=== PATIENT | male | born 1955 | race Caucasian/White ===

== ENCOUNTER → 2018-07-16 | Outpatient (CLI) | payer OTHER | END | disposition home or self-care (01) | LOC: CFH 08:57 | PROVIDERS: ATTEND Internal Medicine Cardiovascular Disease | DX: I07.1 Rheumatic tricuspid insufficiency (principal); I10 Essential (primary) hypertension; E78.5 Hyperlipidemia, unspecified | CPT/HCPCS: 93306 ==

== ENCOUNTER 2019-02-05 10:03 | Outpatient (CLI) | payer OTHER ==
[2019-02-05] MEDS ORDERED: RIVA20TA PO (10:44)
[2019-02-05] MEDS ORDERED: METO25TA35 PO (10:44)
[2019-02-05] MEDS ORDERED: MOME30SO2 NAS (10:44)
[2019-02-05] MEDS ORDERED: FLEC150T PO (10:44)
[2019-02-05] MEDS ORDERED: MONT10TA9 PO (10:44)
[2019-02-05] MEDS ORDERED: LISI-167 PO (10:44)
[2019-02-05] MEDS ORDERED: ATOR20TA37 PO (10:44)
== END 2019-02-05 23:59 | disposition home or self-care (01) ==
LOC: STAR 10:03
PROVIDERS: ATTEND Internal Medicine Cardiovascular Disease
DX: Z02.9 Encounter for administrative examinations, unspecified (principal)

== ENCOUNTER → 2019-02-05 | Outpatient (CLI) | payer OTHER ==
[~2019-02-05] MED LIST: ATOR20TA37 PO; FLEC150T PO; LISI-167 PO; METO25TA35 PO; MOME30SO2 NAS; MONT10TA9 PO; OMNIPAQUE 350 MG/ML, 150 ML BOTTLE ONE; RIVA20TA PO
== END | disposition home or self-care (01) ==
LOC: CFH 08:49
PROVIDERS: ATTEND Internal Medicine Cardiovascular Disease
DX: I25.10 Atherosclerotic heart disease of native coronary artery without angina pectoris (principal); R91.1 Solitary pulmonary nodule; I48.0 Paroxysmal atrial fibrillation
CPT/HCPCS: 71046; 75572; Q9967

== ENCOUNTER 2019-02-11 06:39 | Observation (INO) | payer OTHER ==
[2019-02-05 10:28] VITALS: BP 135/78
[~2019-02-11] VITALS: Ht 193 cm; Wt 105.3 kg
[~2019-02-11 06:39] MED LIST changes: -OMNIPAQUE 350 MG/ML, 150 ML BOTTLE ONE
[2019-02-11] MEDS ORDERED: SODIUM CHLORIDE 0.9% 1,000 ML IV SCH ×2 (06:58→07:00)
[2019-02-11] MEDS ORDERED: MIDAZOLAM 1 MG/ML, 2ML ONE (07:51)
[2019-02-11] MEDS ORDERED: FENTANYL PF 250 MCG/5ML ONE (07:52)
[2019-02-11] MEDS ORDERED: PROPOFOL 10 MG/ML, 20ML ONE (07:55)
[2019-02-11] MEDS ORDERED: DEXAMETHASONE 4 MG/ML, 1ML ONE ×2 (07:55)
[2019-02-11] MEDS ORDERED: SUCCINYLCHOLINE 20 MG/ML, 10ML ONE (07:55)
[2019-02-11] MEDS ORDERED: PHENYLEPHRINE 10 MG/ML ONE (07:56)
[2019-02-11] MEDS ORDERED: ROCURONIUM 10MG/ML,5ML ONE (07:56)
[2019-02-11] MEDS ORDERED: ONDANSETRON 2MG/ML, 2ML ONE ×2 (11:44)
[2019-02-11] MEDS ORDERED: PROTAMINE SULFATE 10 MG/ML, 5ML ONE (11:45)
[2019-02-11] MEDS ORDERED: FENTANYL PF 100 MCG/2ML ONE (11:54)
[2019-02-11] MEDS: FLECAINIDE 100MG TABLET PO SCH ×2 (12:00→23:20)
[2019-02-11] MEDS ORDERED: ZOLPIDEM 5MG TABLET PO PRN (12:00)
[2019-02-11] MEDS ORDERED: ACETAMINOPHEN 325 MG TABLET PO PRN ×2 (12:00→12:30)
[2019-02-11] MEDS ORDERED: ONDANSETRON 2MG/ML, 2ML IV PRN (12:30)
[2019-02-11] MEDS ORDERED: ALBUTEROL SULFATE 2.5 MG/3 ML NPPB PRN (12:30)
[2019-02-11] MEDS ORDERED: HYDROmorphone 2 MG/ML, 1ML IVPush PRN (12:30)
[2019-02-11] MEDS ORDERED: FENTANYL PF 100 MCG/2ML IV PRN (12:30)
[2019-02-11] MEDS ORDERED: DIAZEPAM 5 MG/ML, 2ML IVPush PRN (12:30)
[2019-02-11] MEDS ORDERED: ONDANSETRON ODT 8 MG PO PRN (12:30)
[2019-02-11] MEDS ORDERED: EPHEDRINE 50 MG/ML, 1ML IVPush PRN (12:30)
[2019-02-11] MEDS ORDERED: MIDAZOLAM 1 MG/ML, 2ML IV PRN (12:30)
[2019-02-11] MEDS ORDERED: OXYcodone 5 MG/5 ML ORAL.SOL UDC PO PRN (12:30)
[2019-02-11] MEDS ORDERED: PROMETHAZINE 25 MG/ML, 1ML IV PRN (12:30)
[2019-02-11] MEDS ORDERED: MEPERIDINE/PF 25MG/0.5ML IVPush PRN (12:30)
[2019-02-11] MEDS ORDERED: HALOPERIDOL 5 MG/ML IV PRN (12:30)
[2019-02-11] MEDS ORDERED: MORPHINE SULFATE 4 MG/ML, 1ML IVPush PRN (12:30)
[2019-02-11] MEDS ORDERED: PROMETHAZINE 12.5 MG SUPP PR PRN (12:30)
[2019-02-11] MEDS ORDERED: LABETALOL 5MG/ML, 20ML IV PRN (12:30)
[2019-02-11] MEDS ORDERED: hydrALAzine 20 MG/ML, 1ML IV PRN (12:30)
[2019-02-11] MEDS: RIVAROXABAN 20 MG TABLET PO SCH (12:55)
[2019-02-11 13:43] VITALS: BP 138/70
[2019-02-11 20:45] VITALS: BP 117/75
[2019-02-11] MEDS ORDERED: ATORVASTATIN 20 MG TABLET PO SCH (21:00)
[2019-02-11] MEDS: METOPROLOL TARTRATE 25 MG TABLET PO SCH (21:37)
[2019-02-12 01:55] VITALS: BP 104/63
[2019-02-12 07:41] VITALS: BP 116/74
[2019-02-12] MEDS ORDERED: METO25TA35 PO (07:52)
[2019-02-12] MEDS ORDERED: ATOR20TA37 PO (07:52)
[2019-02-12] MEDS ORDERED: FLEC100T PO (07:52)
[2019-02-12] MEDS ORDERED: LISI-167 PO (07:52)
[2019-02-12] MEDS: METOPROLOL TARTRATE 25 MG TABLET PO SCH (08:22)
[2019-02-12] MEDS: RIVAROXABAN 20 MG TABLET PO SCH (08:22)
[2019-02-12] MEDS ORDERED: MOMETASONE FUROATE NAS SCH (09:00)
[2019-02-12] MEDS ORDERED: LISINOPRIL 10 MG TABLET PO SCH (09:00)
[2019-02-12] MEDS ORDERED: MONTELUKAST 10 MG TABLET PO SCH (09:00)
== END 2019-02-12 12:11 | disposition home or self-care (01) ==
LOC: CACL 06:39 → ORIP 11:54 → 5SO 13:26 → DCLOUNGE 02-12 11:45
PROVIDERS: ADMIT Internal Medicine Cardiovascular Disease; ATTEND Internal Medicine Cardiovascular Disease
DX: I48.91 Unspecified atrial fibrillation (principal); I48.92 Unspecified atrial flutter; I10 Essential (primary) hypertension; M19.90 Unspecified osteoarthritis, unspecified site; Z79.01 Long term (current) use of anticoagulants
CPT/HCPCS: 93306; 93312; 93321; 93325; 93613; 93655; 93656; 93657; 93662; C1730; C1732; C1759; C1766; C1893; C1894; G0378; J0330; J1100; J2250; J2370; J2405; J2704; J2720; J3010; 85347

== ENCOUNTER → 2019-11-21 | Outpatient (CLI) | payer OTHER ==
[~2019-11-21] MED LIST changes: +FLEC100T PO
== END | disposition home or self-care (01) ==
LOC: CFH 08:45
PROVIDERS: ATTEND Nurse Practitioner Family
DX: M47.814 Spondylosis without myelopathy or radiculopathy, thoracic region (principal); R91.1 Solitary pulmonary nodule
CPT/HCPCS: 71250

== ENCOUNTER → 2020-05-11 | Outpatient (CLI) | payer MEDICARE, OTHER ==
[~2020-05-11] MED LIST changes: +MONT10TA11 PO; -MONT10TA9 PO
== END | disposition home or self-care (01) ==
LOC: CFH 09:41
PROVIDERS: ATTEND Internal Medicine
DX: M47.814 Spondylosis without myelopathy or radiculopathy, thoracic region (principal); R91.8 Other nonspecific abnormal finding of lung field
CPT/HCPCS: 71250